=== PATIENT | male | born 1980 | race Caucasian/White ===

== ENCOUNTER 2020-10-06 18:01 | Emergency (ER) | payer MEDICAID, SELFPAY ==
--- NOTE | ~2020-10-06 | XR_ITS ---
EXAMINATION: LEFT SHOULDER, LEFT KNEE, LEFT FOREARM, LEFT HIP CLINICAL INFORMATION: Fall with pain COMPARISON: None TECHNIQUE: 4 views left shoulder, 2 views left forearm, 4 views left hip, 4 views left knee FINDINGS: Left shoulder: No abnormality is seen. No fractures or dislocations. No abnormal calcifications. Left forearm: The radius and ulna appear normal. The visualized left elbow and left wrist appear normal. Left hip: No significant bone joint or soft tissue abnormality seen. Left knee: No bone joint or soft tissue abnormality is seen. XR/XR hip LT w PEL1V IMPRESSION: No evidence of acute traumatic injury.
--- NOTE | ~2020-10-06 | XR_ITS ---
EXAMINATION: LEFT SHOULDER, LEFT KNEE, LEFT FOREARM, LEFT HIP CLINICAL INFORMATION: Fall with pain COMPARISON: None TECHNIQUE: 4 views left shoulder, 2 views left forearm, 4 views left hip, 4 views left knee FINDINGS: Left shoulder: No abnormality is seen. No fractures or dislocations. No abnormal calcifications. Left forearm: The radius and ulna appear normal. The visualized left elbow and left wrist appear normal. Left hip: No significant bone joint or soft tissue abnormality seen. Left knee: No bone joint or soft tissue abnormality is seen. XR/XR forearm LT 2V IMPRESSION: No evidence of acute traumatic injury.
--- NOTE | ~2020-10-06 | XR_ITS ---
EXAMINATION: LEFT SHOULDER, LEFT KNEE, LEFT FOREARM, LEFT HIP CLINICAL INFORMATION: Fall with pain COMPARISON: None TECHNIQUE: 4 views left shoulder, 2 views left forearm, 4 views left hip, 4 views left knee FINDINGS: Left shoulder: No abnormality is seen. No fractures or dislocations. No abnormal calcifications. Left forearm: The radius and ulna appear normal. The visualized left elbow and left wrist appear normal. Left hip: No significant bone joint or soft tissue abnormality seen. Left knee: No bone joint or soft tissue abnormality is seen. XR/XR shoulder LT min 2V IMPRESSION: No evidence of acute traumatic injury.
--- NOTE | ~2020-10-06 | XR_ITS ---
EXAMINATION: LEFT SHOULDER, LEFT KNEE, LEFT FOREARM, LEFT HIP CLINICAL INFORMATION: Fall with pain COMPARISON: None TECHNIQUE: 4 views left shoulder, 2 views left forearm, 4 views left hip, 4 views left knee FINDINGS: Left shoulder: No abnormality is seen. No fractures or dislocations. No abnormal calcifications. Left forearm: The radius and ulna appear normal. The visualized left elbow and left wrist appear normal. Left hip: No significant bone joint or soft tissue abnormality seen. Left knee: No bone joint or soft tissue abnormality is seen. XR/XR knee LT 4V IMPRESSION: No evidence of acute traumatic injury.
[2020-10-06 18:20] VITALS: BP 136/59; PULSE 70; RESP 16; TEMP 36.6; O2SAT 97; BMI 29.9
[2020-10-06] MEDS: Ibuprofen 800 MG TABLET PO (19:35)
--- NOTE | 2020-10-06 20:02 | ED_ITS ---
HPI - Fall General Chief Complaint: Fall Stated Complaint: arm pain from fall Time Seen by Provider: 10/06/20 18:37 Source: patient Mode of arrival: ambulatory Limitations: no limitations History of Present Illness HPI Narrative: Patient presents to ED for left shoulder pain left hip pain and left knee pain after falling. Patient states he tripped over the beach chair and fell onto his left shoulder left hip and left knee. Patient states pain in the left forearm, left shoulder, left hip and left knee. Patient denies hitting head or loss of consciousness. Patient is not on any blood thinners Related Data Previous Rx's Medication Instructions Recorded naproxen 500 mg PO BID PRN #20 tab 10/06/20 Allergies Allergy/AdvReac Type Severity Reaction Status Date / Time codeine [CODEINE] Allergy Severe HIVES Verified 10/06/20 19:28 Review of Systems Review of Systems: Yes all other systems are reviewed and are negative Constitutional: Constitutional: Reports as per HPI and Reports no additional constitutional complaints Eyes: Eyes: Reports as per HPI and Reports no additional eye complaints ENT: Reports system reviewed and no additional complaints, except as documented and Reports as per HPI Cardiovascular: Cardiovascular: Reports as per HPI and Reports no additional cardiovascular complaints Respiratory: Respiratory: Reports as per HPI and Reports no additional respiratory complaints Gastrointestinal: Gastrointestinal: Reports as per HPI and Reports no additional gastrointestinal complaints Genitourinary: Genitourinary: Reports no additional male genitourinary complaints and Reports as per HPI Musculoskeletal: Musculoskeletal: Reports no additional musculoskeletal complaints, Reports as per HPI and Reports arthralgias (Left knee, left hip, left forearm, left shoulder) Neurologic: Reports system reviewed and no additional complaints, except as documented and Reports as per HPI Psychiatric: Psychiatric: Reports no additional psychiatric complaints and Reports as per HPI [facility] Past Medical History Medical History (Updated 10/06/20 @ 20:30 by MADHAVI Atkins) No known health problems Social History Social History Advance Directives: No Advance Directives Information Provided: Yes Physical Exam Vital Signs: Vital Signs: Last Vital Signs Temp 98 F 10/06/20 18:20 Pulse 70 10/06/20 18:20 Resp 16 10/06/20 18:20 BP 136/59 L 10/06/20 18:20 Pulse Ox 97 10/06/20 18:20 Body Mass Index 29.9 Const: General: cooperative, healthy appearing, comfortable, no acute distress, well developed, alert and awake Orientation/consciousness: patient oriented x3 HENMT: Head: Yes normal to inspection, Yes No palpable skull fracture present, Yes normocephalic, Yes atraumatic, No abrasion, No Acrocyanosis present, No Kern's sign, No contusion, No cranial bruits, No hematoma, No laceration, No occipital foramen tenderness, No palpable skull fracture, No raccoon eyes, No scalp lesion, No scalp tenderness, No Temporal artery tenderness present and No periorbital ecchymosis Eyes: General: appearance normal, both eyes and all related structures Neck: Neck: Yes normal visual inspection, Yes full ROM, Yes no lymphadenopathy, Yes no meningeal signs, Yes trachea midline, Yes supple and No tender Chest: Chest palpation & inspection: normal inspection of the chest and normal palpation of entire chest wall Resp: Effort & Inspection: normal respiratory effort and able to speak in complete sentences Auscultation: clear to auscultation bilaterally Cardio: Jugular venous distension: no JVD Heart sounds: S1 normal heart sound present and S2 normal heart sound present GI: Inspection: Yes normal to inspection and No abdominal wall ecchymosis Palpation (GI): Soft to palpation, not firm, nontender, no guarding and not rigid : General: No CVA tenderness and Yes no CVA tenderness Back/Spine/Pelvis: Back: no CVA tenderness, No CVA tenderness and No back tenderness Skin: General skin exam: no rashes or lesions noted and elasticity normal Neuro: General: patient oriented x3, gait normal, no meningeal signs and CN's II-XI intact bilaterally Cranial nerves: Yes CN's II-XII intact bilaterally Extrem: Other: Positive for left shoulder, left forearm, left hip, left knee tenderness on palpation. Negative for any obvious deformities. All extremities motor/neuro/vascular exam intact. Positive for left forearm abrasion. Psych: Appearance: grossly normal, well kempt and not disheveled Course Course Course Narrative: Patient will be sent for x-rays. No indication for head CT scan or cervical spine. Patient denies hitting head. Patient on any blood thinners Reevaluation(s) Reevaluation #1: Patient given Motrin for pain Reevaluation #2: X-rays negative for fracture Time: 20:29 MDM - Fall MDM Narrative Medical decision making narrative: Contusion. Abrasion Discharge Plan Discharge Clinical Impression: Contusion, Abrasion Patient Disposition: Home, Self-Care Instructions: Contusion in Adults (ED), Abrasion (ED) Additional Instructions: Return to ED for any headache, dizziness, abdominal pain, chest pain, flank pain, blood in urine, blood in stool, vomiting blood, neck pain, or any other concerning symptoms. Your x-rays came back negative for fracture. Prescriptions: New naproxen 500 mg tablet 500 mg PO BID PRN (Reason: pain) Qty: 20 RF: 0 Print Language: Mongolian
== END 2020-10-06 21:05 | disposition home or self-care (01) ==
PROVIDERS: Emergency Provider Emergency Medicine; PCP Obstetrics & Gynecology
DX: M25.512 Pain in left shoulder (principal); M25.552 Pain in left hip; M25.562 Pain in left knee; S50.812A Abrasion of left forearm, initial encounter; T14.8XXA Other injury of unspecified body region, initial encounter; W01.0XXA Fall on same level from slipping, tripping and stumbling without subsequent striking against object, initial encounter; Y93.9 Activity, unspecified; Y92.9 Unspecified place or not applicable; Y99.9 Unspecified external cause status
CPT/HCPCS: 73030; 73090; 73502; 73564; 90471; 99284; 99285

== ENCOUNTER 2023-06-04 10:39 | Emergency (ER) | payer MEDICAID, SELFPAY ==
--- NOTE | ~2023-06-04 | XR_ITS ---
EXAMINATION: XR chest 2V CLINICAL INFORMATION: Reason for Exam CP COMPARISON: No prior chest x-ray available in our system for comparison at the time of this dictation. TECHNIQUE: XR chest 2V, 2 Views Lungs and Jacquelyn: Patchy opacity projecting over the right upper lobe superimposed on the anterior third rib might represent patchy infiltrate versus lung nodule. Pleura: Normal. Costophrenic angles are sharp. No pneumothorax. Heart: The heart is normal in size. Mediastinum: The mediastinum is within normal limits.. Bones: Skeletal structures included are normal for patient's age. XR/XR chest 2V IMPRESSION: 1. Patchy opacity projecting over the right upper lobe might represent patchy infiltrate versus lung nodule. 2. No pleural effusion. 3. Attention to follow-up chest x-ray in one month recommended to ensure complete clearance and exclude underlying pathology.
[2023-06-04 10:42] VITALS: BP 123/76; PULSE 94; RESP 16; TEMP 36.9; O2SAT 99; BMI 30.8
--- NOTE | 2023-06-04 10:54 | ECG_ITS ---
Test Reason : CP Blood Pressure : / mmHG Vent. Rate : 084 BPM Atrial Rate : 084 BPM P-R Int : 176 ms QRS Dur : 088 ms QT Int : 332 ms P-R-T Axes : 061 070 048 degrees QTc Int : 392 ms Normal sinus rhythm Septal infarct , age undetermined Abnormal ECG No previous ECGs available Referred By: Danelle Amaro Electronically Signed By:Carlos Terrazas
--- NOTE | 2023-06-04 10:55 | ED_ITS ---
HPI - Asthma General Chief Complaint: Asthma Stated Complaint: chest pain Time Seen by Provider: 06/04/23 10:53 Source: patient and RN notes reviewed Mode of arrival: ambulatory Limitations: no limitations History of Present Illness HPI Narrative: This is a 43-year-old male, with a past medical history of asthma as a child, presenting to the emergency department with complaints of cough, shortness breath, wheezing, subjective fevers and chills x2 days. Patient states that he has been using his girlfriend's inhaler at home which has provided him with some relief. 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 He does admit to having some chest tightness, which occurs only with cough. Denies any chest pain, palpitations, abdominal pain, nausea, vomiting. He does endorse some diarrhea, no bloody or black stool. No other complaints or concerns at this time. MD complaint: shortness of breath and wheezing Onset (ago): day(s) Severity: moderate Associated symptoms: productive cough and fever (Subjective) Asthma History: childhood onset Related Data Current Asthma Therapy: none Previous Rx's Medication Instructions Recorded naproxen 500 mg tablet 500 mg PO BID PRN pain #20 tabs 10/06/20 albuterol sulfate 90 mcg/actuation 2 puff inhalation 6XD PRN 06/04/23 aerosol inhaler shortness of breath or wheezing #6.7 grams azithromycin 250 mg tablet 250 mg PO DAILY 4 days #4 tabs 06/04/23 prednisone 20 mg tablet 40 mg (2 x 20 mg) PO DAILY 4 days 06/04/23 #8 tabs Allergies Allergy/AdvReac Type Severity Reaction Status Date / Time codeine [CODEINE] Allergy Severe HIVES Verified 10/06/20 19:28 Review of Systems 2 Review of Systems: Yes all other systems are reviewed and are negative Constitutional: Constitutional: Reports as per [facility] Past Medical History Attestation statement: The following information was validated with the patient. Medical History No known health problems Social History Social History Smoked in Last 30 Days: No Use of substances other than those prescribed or required for medical reasons: No Advance Directives: No Advance Directives Information Provided: No Physical Exam 2 Vital Signs: Vital Signs: Last Vital Signs Temp 98.5 F 06/04/23 10:42 Pulse 100 06/04/23 14:21 Resp 16 06/04/23 14:21 BP 125/63 06/04/23 14:21 Pulse Ox 93 06/04/23 14:21 O2 Del Method Room Air 06/04/23 14:21 BMI result Body Mass Index 30.8 Const: General: cooperative, comfortable and no acute distress O rientation/consciousness: patient oriented x3 Limitations: no limitations HEENT: Head: Yes normal to inspection, Yes normocephalic and Yes atraumatic Ears: hearing grossly normal bilaterally and TM's normal bilaterally General nose exam: Normal external nose present Face and sinus: Yes normal facial exam Mouth: Normal oral and palatal mucosa present, oropharynx normal and moist mucous membranes Throat: Yes posterior oropharynx normal, Yes tonsils normal and Yes uvula midline Eyes: General: appearance normal, both eyes and all related structures E yelids: Yes eyelids normal Conjunctivae: conjunctivae normal Sclerae: s clerae normal Pupils: Equal, round and reactive pupils present EOM: EOMs intact bilaterally Neck: Neck: Yes normal visual inspection, Yes full ROM and Yes no lymphadenopathy Lymphatic: no lymphadenopathy noted Chest: Chest palpation & inspection: normal inspection of the chest Resp: Other: Faint expiratory wheeze noted at the right lower base, diminished throughout Effort & Inspection: normal respiratory effort and able to speak in complete sentences Cardio: Rate: regular rate Rhythm: regular rhythm Heart sounds: S1 normal heart sound present and S2 normal heart sound present GI: Inspection: Yes normal to inspection Skin: General skin exam: no rashes or lesions noted Trauma: no lacerations or abrasions Wounds: no wounds Neuro: General: patient oriented x3 and moves all extremities Cranial nerves: Yes Equal, round and reactive pupils present Extrem: General: Yes normal to inspection Right upper extremity: normal to inspection Left upper extremity: normal to inspection Right lower extremity: normal to inspection Left lower extremity: normal to inspection Course Reevaluation(s) Reevaluation #1: Patient's symptoms improved after receiving IV fluids, updraft, prednisone, and Zithromax. Chest x-ray reviewed as patchy opacity in the right upper lobe, therefore treating with azithromycin. Recommending repeat chest x-ray in 1 month. Discharge patient with return precautions. He understands and agrees with plan. Patient stable for discharge Medications Administered Discontinued Medications Generic Name Dose Route Start Last Admin Trade Name Evelyne PRN Reason Stop Dose Admin Azithromycin 500 mg 06/04/23 14:16 06/04/23 14:28 Azithromycin 500 Mg Tablet PO 06/04/23 14:17 500 mg ONCE ONE Administration Albuterol Sulfate 2.5 mg/ 0 mg 06/04/23 11:34 06/04/23 11:37 Albuterol/Ipratropium 3 ml INHALE 06/04/23 11:35 5 dose ONCE ONE Administration Sodium Chloride 1,000 mls @ 999 mls/hr 06/04/23 12:24 06/04/23 14:28 Ns IV 06/04/23 13:24 Infused .Q1H1M ONE Infusion Prednisone 40 mg 06/04/23 11:14 06/04/23 11:37 Prednisone 20 Mg Tablet PO 06/04/23 11:15 40 mg ONCE ONE Administration Medical Decision Making Medical Decision Making [facility] Narrative: This is a 43-year-old male, with a history of asthma, presenting to the emergency department for evaluation of wheezing, shortness breast, cough and chest tightness x2 days. On arrival, vital signs within normal limits, lungs with faint expiratory wheezes with diminished lung sounds throughout. No other findings on physical exam. Differential diagnoses include URI, bronchitis, influenza, COVID. Less likely pneumonia, ACS. Plan: Labs, EKG, chest x-ray, viral swabs, ED bronch protocol, prednisone Differential Diagnosis Differential Diagnoses: The differential diagnosis associated with the presentation includes See above Admission/Observation Consideration of admission/observation: Escalation of care including admission/observation considered Lab Data [facility] Lab Attestation statement: I reviewed the patient's lab results. No leukocytosis, stable H&H, slight STEFFANIE at 1.41, given 1 L IV fluids. Negative troponin. Influenza a positive 06/04/23 11:38 06/04/23 11:38 Labs: Lab Results 06/04/23 Range/Units 11:38 WBC 4.6 L (4.8-10.8) X10*3/uL RBC 5.33 (4.60-5.80) X10*6/uL Hgb 12.8 L (14.0-18.0) g/dl Hct 40.2 L (42.0-52.0) % MCV 75.4 L (80.0-98.0) fL MCH 24.0 L (27.0-33.0) pg MCHC 31.8 (31.0-36.0) g/dl RDW 13.2 (11.0-16.0) % Plt Count 172 (160-400) X10*3/uL MPV 10.3 (9.4-12.4) fL Immature Gran % (Auto) 0.2 (0.0-0.4) % Neut % (Auto) 54.7 (45-73) % Lymph % (Auto) 27.0 (20-40) % Meigs % (Auto) 16.4 H (2-11) % Eos % (Auto) 1.5 (0-4) % Baso % (Auto) 0.2 (0-2) % Lymph # (Auto) 1.2 (1.2-4.9) X10*3/uL Meigs # (Auto) 0.8 (0.1-1.2) X10*3/uL Eos # (Auto) 0.1 (0.0-0.4) X10*3/uL Baso # (Auto) 0.0 (0.0-0.2) X10*3/uL Abs Immat Gran (auto) 0.01 (0.00-0.03) X10*3/uL Absolute Neuts (auto) 2.5 (2.0-8.3) x10*3/uL Absolute Nucleated RBC 0.000 (0.0-0.012) X10*3/uL Nucleated RBC % (auto) 0.0 (0.0-0.2) /100WBC Sodium 137 (135-145) mmol/L Potassium 3.6 (3.3-5.1) mmol/L Chloride 102 (96-108) mmol/L Carbon Dioxide 25 (22-29) mmol/L Anion Gap 14 (12-20) BUN 13 (9-16) mg/dL Creatinine 1.41 H (0.5-1.4) mg/dL Estim Creat Clear Calc 78.3 Estimated GFR 55 Random Glucose 92 (60-115) mg/dL Calcium 8.8 (8.4-10.2) mg/dL Magnesium 1.8 (1.6-2.6) mg/dL Total Bilirubin 0.8 (0.0-1.0) mg/dL Direct Bilirubin 0.3 (0.0-0.5) mg/dL AST 44 H (5-37) U/L ALT 56 H (0-40) U/L Alkaline Phosphatase 60 (39-117) U/L Troponin I High Sens 3.3 (<3.5-35.0) ng/L Total Protein 7.6 (6.5-8.0) g/dL Albumin 4.2 (3.5-5.0) g/dL COVID-19 (MATT) Negative (Negative) COVID-19 Clin Com See Note Influenza Type A (BARRY) Positive A (Negative) Influenza Type B (BARRY) Negative (Negative) Influenza A & B Note See Note Radiology Impression Discussion of test interpretation with radiology: I have reviewed the radiologist's reading. Radiologist Impression: EXAMINATION: XR chest 2V CLINICAL INFORMATION: Reason for Exam CP COMPARISON: No prior chest x-ray available in our system for comparison at the time of this dictation. TECHNIQUE: XR chest 2V, 2 Views Lungs and Jacquelyn: Patchy opacity projecting over the right upper lobe superimposed on the anterior third rib might represent patchy infiltrate versus lung nodule. Pleura: Normal. Costophrenic angles are sharp. No pneumothorax. Heart: The heart is normal in size. Mediastinum: The mediastinum is within normal limits.. Bones: Skeletal structures included are normal for patient's age. XR/XR chest 2V IMPRESSION: 1. Patchy opacity projecting over the right upper lobe might represent patchy infiltrate versus lung nodule. 2. No pleural effusion. 3. Attention to follow-up chest x-ray in one month recommended to ensure complete clearance and exclude underlying pathology. Dictated By: Gary Serna MD Discharge Plan Discharge Clinical Impression: Influenza A, Pneumonia, Asthma exacerbation Patient Disposition: Home, Self-Care Instructions: Asthma (ED), Community Acquired Pneumonia (ED), Pneumonia (ED) Additional Instructions: Your seen in the emergency department due to wheezing, shortness breath and cough. You tested positive for the flu today. This is a virus that is very contagious, please limit exposure to other people. Your chest x-ray shows findings concerning for a possible early pneumonia. Kwasi blankenship have repeat chest x-ray in 1 month to ensure that this has resolved. Take prescribed antibiotic as directed, finish the entire course even if you are feeling better. Drink plenty of fluids get plenty of rest. Take prednisone as prescribed, start this tomorrow as you already received a dose today. Use inhaler as directed as needed. Use this with spacer provided as this will help get medicine where it needs to be. If any new or worsening symptoms occur including but not limited to chest pain, shortness of breath, please return for re-evaluation. Prescriptions: New azithromycin 250 mg tablet 250 mg PO DAILY 4 Days Qty: 4 0RF Rx Instructions: start on day 2 of therapy prednisone 20 mg tablet 40 mg PO DAILY 4 Days Qty: 8 0RF albuterol sulfate 90 mcg/actuation HFA aerosol inhaler 2 puff inhalation 6XD PRN (Reason: shortness of breath or wheezing) Qty: 6.7 0RF No Action naproxen 500 mg tablet 500 mg PO BID PRN (Reason: pain) Qty: 20 0RF Stand Alone Forms: Work/School Release Interventions: ED Discharge Assessment Last Done: 06/04/23 14:34 Discharge Date/Time: 06/04/23 14:34
[2023-06-04] MEDS: Albuterol Sulfate 2.5 MG, Albuterol/Iprat 2.5/0.5MG 3 ML 3 ML INHALE (11:37)
[2023-06-04] MEDS: predniSONE 20 MG TABLET 40 MG PO (11:37)
[2023-06-04 11:39] VITALS: PULSE 91; RESP 18; O2SAT 95
[2023-06-04 11:44] LABS: MANUAL DIFF FLAG NO
[2023-06-04 11:48] LABS: Basophils Percent Auto 0.2 % (0-2); Eosinophils Absolute Auto 0.1 X10*3/uL (0.0-0.4); Eosinophils Percent Auto 1.5 % (0-4); Hematocrit 40.2 % (42.0-52.0); Hemoglobin 12.8 g/dl (14.0-18.0); Imm Gran Abs Auto 0.01 X10*3/uL (0.00-0.03); Imm Gran Pct Auto 0.2 % (0.0-0.4); Lymphocytes Absolute Auto 1.2 X10*3/uL (1.2-4.9); Mean Corpuscular HGB Conc 31.8 g/dl (31.0-36.0); Mean Corpuscular Volume 75.4 fL (80.0-98.0); Mean Platelet Volume 10.3 fL (9.4-12.4); Monocytes Absolute Auto 0.8 X10*3/uL (0.1-1.2); Monocytes Percent Auto 16.4 % (2-11); Neutrophils Absolute Auto 2.5 x10*3/uL (2.0-8.3); Neutrophils Percent Auto 54.7 % (45-73); Platelet Count 172 X10*3/uL (160-400); Red Blood Count 5.33 X10*6/uL (4.60-5.80); Red Cell Distribution Width 13.2 % (11.0-16.0); White Blood Count 4.6 X10*3/uL (4.8-10.8)
[2023-06-04 12:03] LABS: COVID-19 Test Negative (Negative); IDNOW Serial# 08D9AD1C; IDNOW Serial# 152EDE1D; Influenza A Positive (Negative); Influenza B2 Negative (Negative)
[2023-06-04 12:07] VITALS: BP 140/69; PULSE 104; RESP 21; O2SAT 94
[2023-06-04 12:13] LABS: Alanine Aminotransferase 56 U/L (0-40); Albumin Level 4.2 g/dL (3.5-5.0); Alkaline Phosphatase 60 U/L (39-117); Anion Gap 14 (12-20); Aspartate Amino Transferase 44 U/L (5-37); Bilirubin Direct 0.3 mg/dL (0.0-0.5); Bilirubin Total 0.8 mg/dL (0.0-1.0); Blood Urea Nitrogen 13 mg/dL (9-16); Calcium 8.8 mg/dL (8.4-10.2); Carbon Dioxide 25 mmol/L (22-29); Chloride 102 mmol/L (96-108); Creatinine Clr Calc Pharmacy 78.3; Estimated Glomerular Filt Rate 55; Glucose Random 92 mg/dL (60-115); Magnesium 1.8 mg/dL (1.6-2.6); Potassium 3.6 mmol/L (3.3-5.1); Sodium 137 mmol/L (135-145); Total Protein 7.6 g/dL (6.5-8.0)
[2023-06-04 12:20] LABS: Troponin-I High Sensitivity 3.3 ng/L (<3.5-35.0)
[2023-06-04] MEDS: 0.9 % Sodium Chloride 1,000 ML 999 ML IV (12:38)
[2023-06-04 14:21] VITALS: BP 125/63; PULSE 100; RESP 16; O2SAT 93
[2023-06-04] MEDS: Azithromycin 500 MG TABLET PO (14:28)
--- NOTE | 2023-06-04 14:29 | PC.NURSE ---
medication administered per provider order.
== END 2023-06-04 14:34 | disposition home or self-care (01) ==
PROVIDERS: Physician Assistant Medical; Emergency Provider Internal Medicine; PCP Obstetrics & Gynecology
DX: J10.00 Influenza due to other identified influenza virus with unspecified type of pneumonia (principal); J45.901 Unspecified asthma with (acute) exacerbation; R06.02 Shortness of breath; Z11.52 Encounter for screening for COVID-19
CPT/HCPCS: 36415; 71046; 80048; 80076; 83735; 84484; 85025; 87502; 87635; 93005; 94640; 96360; 96361; 99284; 99285

== ENCOUNTER → 2023-06-04 10:54 | Outpatient (BNV) | payer MEDICAID, SELFPAY | PROVIDERS: Emergency Provider Internal Medicine; PCP Obstetrics & Gynecology; Visit Provider Internal Medicine Cardiovascular Disease | DX: R94.31 Abnormal electrocardiogram [ECG] [EKG] (principal); R07.9 Chest pain, unspecified | CPT/HCPCS: 93010 ==

== ENCOUNTER 2023-11-29 22:54 | Emergency (ER) | payer OTHER, SELFPAY ==
[2023-11-30 00:16] VITALS: BP 131/56; PULSE 81; RESP 20; TEMP 37; O2SAT 98; BMI 33.4
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
[2023-11-30] MEDS: Amoxicillin/Potassium Clav 875 MG TABLET PO (01:02)
[2023-11-30] MEDS: oxyCODONE HCl Immed Release 5 MG TABLET 10 MG PO (01:02)
[2023-11-30 01:04] VITALS: BP 131/56; PULSE 81; RESP 20; TEMP 37; O2SAT 98
== END 2023-11-30 01:06 | disposition home or self-care (01) ==
PROVIDERS: Emergency Provider Emergency Medicine; PCP Obstetrics & Gynecology
DX: S02.5XXA Fracture of tooth (traumatic), initial encounter for closed fracture (principal); R51.9 Headache, unspecified; V43.92XA Unspecified car occupant injured in collision with other type car in traffic accident, initial encounter; Y93.9 Activity, unspecified; Y92.488 Other paved roadways as the place of occurrence of the external cause; Y99.8 Other external cause status
CPT/HCPCS: 99283